=== PATIENT | female | born 1965 | race Caucasian/White ===

== ENCOUNTER 2025-02-18 08:42 | Emergency (ER) | payer BC ==
[~2025-02-18] VITALS: Ht 165.1 cm; Wt 102.1 kg
[2025-02-18 08:45] VITALS: PULSE 62; RESP 20; TEMP 97.4
[2025-02-18] MEDS: LIDOCAINE HCL 1% 2 ML AMP INJ ONE (08:56)
[2025-02-18] MEDS: TRAMADOL HCL 50 MG TAB PO ONE (08:57)
[2025-02-18] MEDS: BACITRACIN ZINC 0.9GM TP ONE (09:32)
[2025-02-18] MEDS ORDERED: BACITRACIN15 GM TOP (09:38)
[2025-02-18] MEDS ORDERED: ULTRAM 50MG50 MG PO (09:39)
[2025-02-18] MEDS ORDERED: CEPHALEXIN500 MG PO (09:39)
[2025-02-18 09:49] VITALS: BP 134/69; PULSE 59; RESP 20; TEMP 98; O2SAT 100
== END 2025-02-18 09:47 | disposition home or self-care (01) ==
LOC: FSED 08:48
DX: S60.141A Contusion of right ring finger with damage to nail, initial encounter (principal); W22.09XA Striking against other stationary object, initial encounter; Y92.89 Other specified places as the place of occurrence of the external cause; E11.9 Type 2 diabetes mellitus without complications; Z87.442 Personal history of urinary calculi
CPT/HCPCS: 73140; 99284; J2003